=== PATIENT | male | born 1975 | race African-American/Black ===

== ENCOUNTER 2016-05-09 18:14 | Emergency (ER) | payer OTHER ==
[~2016-05-09] VITALS: Ht 180.3 cm; Wt 77.4 kg
[~2016-05-09 18:14] MED LIST: CLONIDINE HCL0.3 MG PO; CLOTRIM ANTIFUN15 GM TP; GLUCOPHAGE1000 MG PO; LISINOPRIL10 MG PO; NAPROSYN500 MG PO; PHENERGAN-CODE120 ML PO; ZITHROMAX Z-PA250 MG PO
[2016-05-09] MEDS ORDERED: NAPROXEN500 MG PO (19:43)
[2016-05-09] MEDS ORDERED: SKELAXIN800 MG PO (19:43)
[2016-05-09 20:35] VITALS: BP 128/66
== END 2016-05-09 20:36 | disposition home or self-care (01) ==
LOC: EME 18:14
DX: S20.219A Contusion of unspecified front wall of thorax, initial encounter (principal); S39.012A Strain of muscle, fascia and tendon of lower back, initial encounter; S16.1XXA Strain of muscle, fascia and tendon at neck level, initial encounter; V49.50XA Passenger injured in collision with unspecified motor vehicles in traffic accident, initial encounter; E11.9 Type 2 diabetes mellitus without complications; I10 Essential (primary) hypertension; F17.200 Nicotine dependence, unspecified, uncomplicated
CPT/HCPCS: 71020; 72100; 99281; 99284

== ENCOUNTER 2017-03-03 18:09 | Observation (INO) | payer OTHER ==
[~2017-03-03] VITALS: Ht 175.3 cm; Wt 68.2 kg
[~2017-03-03 18:09] MED LIST changes: +NAPROXEN500 MG PO; +SKELAXIN800 MG PO
[2017-03-03 18:41] LABS: MCH 28.4 PG (29.0-34.0); MCV 86.2 FL (86-99); MEAN PLAT.VOLUME 10.8 uM^3 (9.0-12.4); PLATELET COUNT 236 K/uL (156-360); RBC DIS.WIDTH-CV 13.2 % (11.8-14.6); RED BLOOD COUNT 4.29 M/uL (4.00-5.50); WHITE BLOOD COUNT 6.2 K/uL (4.1-10.2)
[2017-03-03 18:50] LABS: CHLORIDE 106 mEq/L (99-109); POTASSIUM 3.6 mEq/L (3.7-5.4); SODIUM 141 mEq/L (136-147)
[2017-03-03 18:53] LABS: GLUCOSE 151 mg/dL (70-99)
[2017-03-03 18:54] LABS: ANION GAP 5 MEQ/L (2-14)
[2017-03-03 18:55] LABS: SERUM ETHYL ALCOHOL < 10 mg/dL
[2017-03-03 18:56] LABS: ALKALINE PHOSPHATASE 96 IU/L (3-129); GFR ESTIMATE (CALCULATED) > 59 mL/min/ (58.99-99999)
[2017-03-03 18:57] LABS: UREA NITROGEN (BUN) 13 mg/dL (9-23)
[2017-03-03 18:59] LABS: CREATINE KINASE 167 IU/L (1-294); TOTAL CK 167 IU/L (1-294)
[2017-03-03 19:05] LABS: AMPHETAMINE NEGATIVE (500 ng/mL); BARBITURATES NEGATIVE (200 ng/mL); BENZODIAZEPINES PRESUMPTIVE POSITIVE (150 ng/mL); COCAINE PRESUMPTIVE POSITIVE (150 ng/mL); INTERNAL CONTROLS VALID? YES; METHADONE NEGATIVE (200 ng/mL); METHAMPHETAMINE NEGATIVE (500 ng/mL); OPIATES (MORPHINE) NEGATIVE (100 ng/mL); OXYCODONE NEGATIVE (100 ng/mL); PHENCYCLIDINE NEGATIVE (25 ng/mL); PROPOXYPHENE NEGATIVE (300 ng/mL); THC CANNABINOIDS PRESUMPTIVE POSITIVE (50 ng/mL); TRICYCLIC ANTIDEPRESSANTS NEGATIVE (300 ng/mL)
[2017-03-03 19:05] LABS: CK-MB 2.1 ng/mL (0.0-4.9)
[2017-03-03 19:06] LABS: TROP-I INTERPRETATION NEGATIVE; TROPONIN-I < 0.01 ng/mL (0.0-0.30)
[2017-03-03 19:06] LABS: ADD MEDTOX COMMENT Y
[2017-03-03 19:44] LABS: BENZODIAZEPINES, URINE SCREEN POSITIVE (200 ng/mL)
[2017-03-03 23:55] LABS: SALICYLATE < 5.0 MG/DL (15-30)
[2017-03-04 01:50] VITALS: BP 125/78
[2017-03-04 02:03] VITALS: BP 109/65
[2017-03-04 06:53] LABS: HEMATOCRIT 36.2 % (38.0-50.0); MCH 28.3 PG (29.0-34.0); MCHC 32.3 G/DL (30.0-36.0); MCV 87.4 FL (86-99); MEAN PLAT.VOLUME 10.8 uM^3 (9.0-12.4); PLATELET COUNT 213 K/uL (156-360); RBC DIS.WIDTH-CV 13.4 % (11.8-14.6); RBC DIS.WIDTH-SD 42.6 % (39-53); RED BLOOD COUNT 4.14 M/uL (4.00-5.50); WHITE BLOOD COUNT 4.9 K/uL (4.1-10.2)
[2017-03-04 07:17] LABS: ANION GAP 4 MEQ/L (2-14); CHLORIDE 109 MEQ/L (99-109); GFR ESTIMATE (CALCULATED) > 59 mL/min/ (58.99-99999); POTASSIUM 3.8 MEQ/L (3.7-5.4); SAMPLE HEMOLYSIS CHECK 0; SAMPLE ICTERIC CHECK 0; SAMPLE LIPEMIA CHECK 0; SODIUM 143 MEQ/L (136-147); UREA NITROGEN (BUN) 12 mg/dL (9-23)
[2017-03-04 07:19] LABS: GLUCOSE 104 mg/dL (70-99)
[2017-03-04 08:28] VITALS: BP 106/55
[2017-03-04 12:13] VITALS: BP 101/59
[2017-03-04] MEDS ORDERED: GLUCOPHAGE500 MG PO (12:54)
[2017-03-04] MEDS ORDERED: CLONIDINE HCL0.3 MG PO (12:54)
[2017-03-04] MEDS ORDERED: LISINOPRIL30 MG PO (12:55)
[2017-03-04] MEDS ORDERED: LUNESTA2 MG PO (12:56)
[2017-03-04] MEDS ORDERED: PHENERGAN-CODE120 ML PO (12:56)
[2017-03-04] MEDS ORDERED: PROZAC20 MG PO (12:56)
[2017-03-04] MEDS ORDERED: SUBOXONE 8 MG-1 EAC2 SL (12:57)
== END 2017-03-04 13:26 | disposition left against medical advice (07) ==
LOC: EME 18:09 → EDOF 23:16 → ENRESERV 23:20 → CANRESERV 23:37 → ENRESERV 23:37 → 3EAST 03-04 02:00
PROVIDERS: Emergency Medicine; Hospitalist
DX: T65.894A Toxic effect of other specified substances, undetermined, initial encounter (principal); R00.1 Bradycardia, unspecified; R94.31 Abnormal electrocardiogram [ECG] [EKG]; I95.9 Hypotension, unspecified; R41.82 Altered mental status, unspecified; F12.129 Cannabis abuse with intoxication, unspecified; F14.129 Cocaine abuse with intoxication, unspecified; F13.129 Sedative, hypnotic or anxiolytic abuse with intoxication, unspecified; F15.129 Other stimulant abuse with intoxication, unspecified; E87.6 Hypokalemia; E11.9 Type 2 diabetes mellitus without complications; I10 Essential (primary) hypertension; F17.200 Nicotine dependence, unspecified, uncomplicated; Z53.20 Procedure and treatment not carried out because of patient's decision for unspecified reasons
CPT/HCPCS: 70450; 80048; 80053; 82550; 82553; 84484; 84999; 85027; 93005; 99281; 99285; G0378; G0480; J2310; J7030; S0028

== ENCOUNTER 2017-04-28 15:37 | Observation (INO) | payer OTHER ==
[~2017-04-28] VITALS: Ht 180.3 cm; Wt 72.5 kg
[~2017-04-28 15:37] MED LIST changes: +GLUCOPHAGE500 MG PO; +LISINOPRIL30 MG PO; +LUNESTA2 MG PO; +PROZAC20 MG PO; +SUBOXONE 8 MG-1 EAC2 SL
[2017-04-28 16:34] LABS: BASOPHIL (%) 0.2 % (0-1); EOSINOPHIL (%) 1.2 % (0-5); EOSINOPHIL COUNT 0.1 K/uL (0-0.3); HEMATOCRIT 34.9 % (38.0-50.0); HEMOGLOBIN 11.3 G/DL (12.5-16.6); IMMATURE GRANULOCYTE (%) 0.2 % (0.0-0.7); LYMPHOCYTE (%) 45.1 % (15-42); LYMPHOCYTE COUNT 2.6 K/uL (1.0-2.8); MCH 28.8 PG (29.0-34.0); MCHC 32.4 G/DL (30.0-36.0); MONOCYTE (%) 7.5 % (3-12); MONOCYTE COUNT 0.4 K/uL (0-0.8); NEUTROPHIL (%) 45.8 % (45-76); NEUTROPHIL COUNT 2.6 K/uL (1.8-6.4); PLATELET COUNT 208 K/uL (156-360); RBC DIS.WIDTH-CV 13.5 % (11.8-14.6); RBC DIS.WIDTH-SD 43.8 % (39-53); RED BLOOD COUNT 3.92 M/uL (4.00-5.50); WHITE BLOOD COUNT 5.7 K/uL (4.1-10.2)
[2017-04-28 16:44] LABS: ALBUMIN 3.3 g/dL (3.2-4.8); CHLORIDE 108 mEq/L (99-109); POTASSIUM 3.8 mEq/L (3.7-5.4); SODIUM 140 mEq/L (136-147)
[2017-04-28 16:45] LABS: MAGNESIUM 1.5 mg/dL (1.3-2.7)
[2017-04-28 16:47] LABS: GLUCOSE 109 mg/dL (70-99); TOTAL PROTEIN 5.8 g/dL (6.4-8.3)
[2017-04-28 16:48] LABS: TOTAL BILIRUBIN 0.9 mg/dL (0.0-1.0)
[2017-04-28 16:50] LABS: ALKALINE PHOSPHATASE 65 IU/L (3-129); SERUM ETHYL ALCOHOL < 10 mg/dL
[2017-04-28 16:51] LABS: CREATININE 1.3 mg/dL (0.6-1.3); GFR ESTIMATE (CALCULATED) > 59 mL/min/ (58.99-99999)
[2017-04-28 16:52] LABS: AST (GOT) 13 IU/L (2-34); UREA NITROGEN (BUN) 9 mg/dL (9-23)
[2017-04-28 16:53] LABS: ALT (GPT) 8 IU/L (3-49)
[2017-04-28 16:55] LABS: TROP-I INTERPRETATION NEGATIVE; TROPONIN-I 0.02 ng/mL (0.0-0.30)
[2017-04-28 17:12] LABS: AMPHETAMINE NEGATIVE (500 ng/mL); BARBITURATES NEGATIVE (200 ng/mL); BENZODIAZEPINES PRESUMPTIVE POSITIVE (150 ng/mL); BUPRENORPHINE PRESUMPTIVE POSITIVE (10 ng/mL); COCAINE PRESUMPTIVE POSITIVE (150 ng/mL); METHADONE NEGATIVE (200 ng/mL); METHAMPHETAMINE NEGATIVE (500 ng/mL); OPIATES (MORPHINE) NEGATIVE (100 ng/mL); OXYCODONE NEGATIVE (100 ng/mL); PHENCYCLIDINE NEGATIVE (25 ng/mL); PROPOXYPHENE NEGATIVE (300 ng/mL); THC CANNABINOIDS NEGATIVE (50 ng/mL); TRICYCLIC ANTIDEPRESSANTS NEGATIVE (300 ng/mL)
[2017-04-28 17:43] LABS: BENZODIAZEPINES, URINE SCREEN POSITIVE (200 ng/mL)
[2017-04-28 19:25] LABS: PHOSPHORUS 3.9 mg/dL (2.5-4.9)
[2017-04-28 19:28] LABS: ACETAMINOPHEN (TYLENOL) < 10 mcg/mL (10-30); SALICYLATE < 5.0 MG/DL (15-30)
[2017-04-28 21:41] VITALS: BP 107/68
== END 2017-04-28 21:41 | disposition left against medical advice (07) ==
LOC: EME 15:37 → EDOF 21:00 → ENRESERV 21:07 → CANRESERV 21:07 → EDOF 21:41
PROVIDERS: Emergency Medicine
DX: T40.1X4A Poisoning by heroin, undetermined, initial encounter (principal); I95.2 Hypotension due to drugs; I45.81 Long QT syndrome; D64.89 Other specified anemias
CPT/HCPCS: 70450; 71045; 80053; 83735; 84100; 84484; 84999; 85025; 93005; G0378; G0480; J0610; J2310; J3475; J7030; J7040; J7050